=== PATIENT | female | born 1985 | race Caucasian/White ===

== ENCOUNTER 2016-10-29 08:06 | Emergency (ER) | payer OTHER ==
[~2016-10-29] VITALS: Ht 170.2 cm; Wt 68.0 kg
[2016-10-29 08:07] VITALS: BP 155/100; PULSE 108; RESP 20; TEMP 97.7; O2SAT 100
[2016-10-29] MEDS ORDERED: CLIN1CAP6 PO (08:19)
[2016-10-29] MEDS ORDERED: ACYC200C66 PO (08:19)
--- NOTE | 2016-10-29 08:24 | PD ---
HPI Chief Complaint: Oral / Dental Pain or Problem Time Seen by Provider: 08:12 Travel History International Travel<30 days: No Contact w/Intl Traveler<30days: No Traveled to known affect area: No History of Present Illness HPI 31-year-old female presents for evaluation of right lower lip pain. She reports that she developed some cold sores over the past few days. Yesterday she was picking at them and squeezing at them and today she developed increased pain, redness, soft tissue swelling localized to the right lower lip. Pain is a throbbing pain, constant, worse with palpation. She has not been using anything for pain relief. No fevers, chills. No other complaints. PFSH Past Medical History ?: Not LMP: 10/23/16 Social History Alcohol Use: No Tobacco Use: Yes Allergies-Medications (Allergen,Severity, Reaction): Coded Allergies: No Known Allergies (Unverified , 10/29/16) Review of Systems General / Constitutional: No: Fever, Chills HENT: Positive: Other (positive for a vesicle formation right lower lip, pain, redness, swelling) Physical Exam Narrative GENERAL: Well-developed well-nourished female in no acute distress SKIN: Warm and dry. HEAD: Atraumatic. Normocephalic. EYES: Pupils equal and round. No scleral icterus. No injection or drainage. ENT: No nasal bleeding or discharge. Mucous membranes pink and moist. Excoriated vesicle noted to the right lower lip. There is some surrounding induration, erythema the lower lip. There is no fluctuance or drainage. NECK: Trachea midline. No JVD. No lymphadenopathy. Data Data Last Documented VS Vital Signs Date Time Temp Pulse Resp B/P Pulse Ox O2 Delivery O2 Flow Rate FiO2 10/29/16 08:07 97.7 108 20 155/100 100 Room Air MDM Medical Decision Making Medical Screen Exam Complete: Yes Emergency Medical Condition: Yes Medical Record Reviewed: Yes Differential Diagnosis Herpes simplex type I, cellulitis, abscess, erysipelas Narrative Course 31-year-old female who developed vesicular formation consistent with herpes simplex now with pain and soft tissue swelling to the right lower lip after picking at and squeezing at her vesicles yesterday. Examination is consistent with superimposed cellulitic infection. The patient will be discharged with acyclovir and clindamycin. Diagnosis Primary Impression: Herpes labialis Additional Impression: Cellulitis Qualified Code: K12.2 - Cellulitis of mouth Additional Instructions: Medication as prescribed. Avoid squeezing or poking at the area. Follow-up with primary care physician as needed. Return for any emergent medical conditions. Med/Other Pt SpecificInfo: Prescription(s) given Scripts Clindamycin 300 Mg [id number] Mg PO TID 10 Days Ref 0 Prov:Chris Pitts MD 10/29/16 Acyclovir 200 Mg [id number] Mg PO 5 TIMES A DAY 7 Days Ref 0 Prov:Chris Pitts MD 10/29/16 Disposition: 01 DISCHARGE HOME Condition: Stable Lambert Luna Oct 29, 2016 08:23
== END 2016-10-29 08:39 | disposition home or self-care (01) ==
LOC: NEPK 08:06
DX: B00.1 Herpesviral vesicular dermatitis (principal); K12.2 Cellulitis and abscess of mouth; Z72.0 Tobacco use
CPT/HCPCS: 99284

== ENCOUNTER 2016-11-02 18:50 | Inpatient (IN) | payer OTHER ==
[~2016-11-02] VITALS: Ht 170.2 cm; Wt 70.3 kg
[~2016-11-02 18:50] MED LIST: ACYC200C66 PO; CLIN1CAP6 PO
[2016-11-02 18:51] VITALS: BP 145/89; PULSE 123; RESP 20; TEMP 102.3; O2SAT 97
[2016-11-02] MEDS ORDERED: VANCOMYCIN INJ 1,000 MG in SODIUM CHLOR 0.9% 250 ML INJ 250 ML IV ONE (19:15)
[2016-11-02] MEDS ORDERED: SODIUM CHLOR 0.9% 1000 ML INJ 100 ML IV ONE (19:15)
[2016-11-02] MEDS ORDERED: KETOROLAC TROMETHAMINE 30 MG/ML (IVP) VIAL IV PUSH ONE (19:15)
[2016-11-02] MEDS ORDERED: SODIUM CHLOR 0.9% 1000 ML INJ 1,000 ML IV ONE ×2 (19:15)
[2016-11-02] MEDS ORDERED: ACYCLOVIR INJ 350 MG in SODIUM CHLORIDE 0.9% INJ 50 ML IV ONE (19:15)
[2016-11-02] MEDS ORDERED: PIPERACIL-TAZO 3.375 GM PREMIX 50 ML IV ONE (19:15)
--- NOTE | 2016-11-02 19:29 | PD ---
HPI Chief Complaint: Skin Problem Time Seen by Provider: 19:15 Travel History International Travel<30 days: No Contact w/Intl Traveler<30days: No Traveled to known affect area: No History of Present Illness HPI 31-year-old female presents for evaluation of worsening facial infection. Initially this patient was seen for mild herpes labialis to the right lower lip with some superimposed cellulitic infection. This was on October 29. She was prescribed acyclovir and clindamycin which she has been using as prescribed starting on October 29. She reports over the past few days she has had worsening swelling of the whole lower lip as well as the right side of her face. Pain is a throbbing pain, constant, worse with palpation. She has been having subjective fevers and chills at home as well. Denies any cough, congestion, chest pain or shortness of breath, abdominal pain. She has a remote history of IV drug abuse, she has not used IV drugs in 6 months. No other complaints. [facility] Social History Alcohol Use: No Tobacco Use: Yes Allergies-Medications (Allergen,Severity, Reaction): Coded Allergies: No Known Allergies (Unverified , 11/02/16) Reported Meds & Prescriptions Reported Meds & Active Scripts Active Clindamycin (Clindamycin HCl) 300 Mg Cap 300 Mg PO TID 10 Days Acyclovir 200 Mg Cap 200 Mg PO 5 TIMES A DAY 7 Days Review of Systems Except as stated in HPI: all other systems reviewed are Neg Physical Exam Narrative GENERAL: well-nourished female in no acute distress, febrile, tachycardic SKIN: Warm and dry. There is significant induration and erythema of the lower lip, some induration of the right cheek. HEAD: Atraumatic. Normocephalic. EYES: Pupils equal and round. No scleral icterus. No injection or drainage. ENT: No nasal bleeding or discharge. Mucous membranes pink and moist. Skin as noted above. NECK: Trachea midline. No JVD. No lymphadenopathy. Neck supple full range of motion. CARDIOVASCULAR: Regular rate and rhythm. No murmur appreciated. RESPIRATORY: No accessory muscle use. Clear to auscultation. Breath sounds equal bilaterally. GASTROINTESTINAL: Abdomen soft, non-tender, nondistended. MUSCULOSKELETAL: No obvious deformities. No clubbing. No cyanosis. No edema. NEUROLOGICAL: Awake and alert. No obvious cranial nerve deficits. Motor grossly within normal limits. Normal speech. Data Data Last Documented VS Vital Signs Date Time Temp Pulse Resp B/P Pulse Ox O2 Delivery O2 Flow Rate FiO2 11/02/16 20:50 16 11/02/16 20:28 99.4 110 125/74 99 Orders Ed Urine Pregnancytest Poc (11/02/16 19:15) Complete Blood Count With Diff (11/02/16 19:15) Comprehensive Metabolic Panel (11/02/16 19:15) Lactic Acid Sepsis Protocol (11/02/16 19:15) Blood Culture (11/02/16 19:15) Sodium Chlor 0.9% 1000 Ml Inj (Ns 1000 M (11/02/16 19:15) Sodium Chlor 0.9% 1000 Ml Inj (Ns 1000 M (11/02/16 19:15) Sodium Chlor 0.9% 1000 Ml Inj (Ns 1000 M (11/02/16 19:15) Ct Facial Bones W Iv Contrast (11/02/16 ) Vancomycin Inj (Vancomycin Inj) (11/02/16 19:15) Piperacil-Tazo 3.375 Gm Premix (Zosyn 3. (11/02/16 19:15) Acyclovir Inj (Zovirax Inj) (11/02/16 19:15) Ketorolac Inj (Toradol Inj) (11/02/16 19:15) Iohexol 350 Inj (Omnipaque 350 Inj) (11/02/16 21:17) Morphine Inj (Morphine Inj) (11/02/16 22:00) Admit Order (Ed Use Only) (11/02/16 22:01) Labs Laboratory Tests Test 11/02/16 11/02/16 19:40 19:45 White Blood Count 7.3 TH/MM3 Red Blood Count 4.29 MIL/MM3 Hemoglobin 13.4 GM/DL Hematocrit 38.5 % Mean Corpuscular Volume 89.7 FL Mean Corpuscular Hemoglobin 31.3 PG Mean Corpuscular Hemoglobin 34.9 % Concent Red Cell Distribution Width 15.0 % Platelet Count 262 TH/MM3 Mean Platelet Volume 8.0 FL Neutrophils (%) (Auto) 63.4 % Lymphocytes (%) (Auto) 25.2 % Monocytes (%) (Auto) 10.2 % Eosinophils (%) (Auto) 0.8 % Basophils (%) (Auto) 0.4 % Neutrophils # (Auto) 4.6 TH/MM3 Lymphocytes # (Auto) 1.8 TH/MM3 Monocytes # (Auto) 0.7 TH/MM3 Eosinophils # (Auto) 0.1 TH/MM3 Basophils # (Auto) 0.0 TH/MM3 CBC Comment DIFF FINAL Differential Comment Lactic Acid Level 0.8 mmol/L Sodium Level 136 MEQ/L Potassium Level 3.8 MEQ/L Chloride Level 100 MEQ/L Carbon Dioxide Level 25.6 MEQ/L Anion Gap 10 MEQ/L Blood Urea Nitrogen 7 MG/DL Creatinine 0.69 MG/DL Estimat Glomerular Filtration 98 ML/MIN Rate Random Glucose 75 MG/DL Calcium Level 8.2 MG/DL Total Bilirubin 0.8 MG/DL Aspartate Amino Transf 49 U/L (AST/SGOT) Alanine Aminotransferase 41 U/L (ALT/SGPT) Alkaline Phosphatase 83 U/L Total Protein 8.3 GM/DL Albumin 3.3 GM/DL [facility] Medical Decision Making Medical Screen Exam Complete: Yes Emergency Medical Condition: Yes Medical Record Reviewed: Yes Interpretation(s) CBC unremarkable CMP AST 49 otherwise unremarkable lactic acid within normal limits Differential Diagnosis Cellulitis failed outpatient therapy, facial abscess, herpes labialis, sepsis Narrative Course 31-year-old female presents with worsening facial infection, currently on day 5 of acyclovir and clindamycin for treatment of right lower lip herpes labialis with superimposed cytolytic infection. On initial examination she is febrile, tachycardic, significantly worst induration and erythema of the lower lip and right cheek. Plan is for broad-spectrum antibiotics, 30 mL/kg, IV acyclovir, basic lab work, CT of the facial bones with IV contrast. Ultimately she will be admitted for further inpatient treatment. 2300: Signed out at the end of my shift pending CT facial bones. Lambert Luna Nov 02, 2016 19:29
[2016-11-02 20:15] LABS: AUTOMATED NEUTROPHIL # 4.6 TH/MM3 (1.8-7.7); BASOPHIL % 0.4 % (0.0-2.0); EOSINOPHIL # 0.1 TH/MM3 (0-0.4); EOSINOPHIL % 0.8 % (0.0-4.0); HEMATOCRIT 38.5 % (35.0-46.0); HEMO FLAGS DIFF FINAL; LYMPH % 25.2 % (9.0-44.0); LYMPHOCYTE # 1.8 TH/MM3 (1.0-4.8); MEAN CELL VOLUME 89.7 FL (80.0-100.0); MEAN CORPUSCULAR HEMOGLOBIN 31.3 PG (27.0-34.0); MEAN CORPUSCULAR HGB CONC 34.9 % (32.0-36.0); MONO % 10.2 % (0.0-8.0); NEUT % 63.4 % (16.0-70.0); PLATELET COUNT 262 TH/MM3 (150-450); RED BLOOD COUNT 4.29 MIL/MM3 (4.00-5.30); WHITE BLOOD COUNT 7.3 TH/MM3 (4.0-11.0)
[2016-11-02 20:28] VITALS: BP 125/74; PULSE 110; RESP 16; TEMP 99.4; O2SAT 99
[2016-11-02 20:32] LABS: ANION GAP 10 MEQ/L (5-15); AST (GOT) 49 U/L (15-37); BICARBONATE 25.6 MEQ/L (21.0-32.0); BLOOD UREA NITROGEN 7 MG/DL (7-18); CHLORIDE 100 MEQ/L (98-107); GLOMERULAR FILTRATION RATE 98 ML/MIN (>89); POTASSIUM 3.8 MEQ/L (3.5-5.1); SODIUM (NA) 136 MEQ/L (136-145)
[2016-11-02 20:37] LABS: ALKALINE PHOSPHATASE 83 U/L (45-117); ALT (GPT) 41 U/L (10-53); TOTAL BILIRUBIN ADULT 0.8 MG/DL (0.2-1.0)
[2016-11-02] MEDS ORDERED: IOHEXOL 350 MG/ML 10 ML VIAL (for RAD DIAG) IV ONE (21:17)
--- NOTE | 2016-11-02 21:40 | RADRPT ---
EXAM DATE/TIME: 11/02/2016 21:05 [place] COMPARISON: No previous studies available for comparison. INDICATIONS : Cold sore on lower lip with worsening pain and swelling to right side of face. IV CONTRAST: 65 cc Omnipaque 350 (iohexol) IV RADIATION DOSE: 36.81 CTDIvol (mGy) MEDICAL HISTORY : None SURGICAL HISTORY : None. ENCOUNTER: Initial ACUITY: 4 - 6 days PAIN SCALE: 5/10 LOCATION: Right facial TECHNIQUE: Volumetric scanning of the facial bones was performed. Using automated exposure control and adjustme nt of the mA and/or kV according to patient size, radiation dose was kept as low as reasonably achiev able to obtain optimal diagnostic quality images. FINDINGS: There is prominent thickening of the lower lip measuring up to 1.4 cm in thickness. The thickening i s symmetric between left and right side. The there are enlarged submandibular nodes bilaterally, 2 o n each side, the largest is on the right side measuring 1.4 cm. No evidence of jugular adenopathy. The visualized portion of the paranasal sinuses are clear. No destructive lesions or fracture of the mandible, maxilla, zygomatic arch, pterygoid plates or nasa l bone. The bony orbit is intact. Intraorbital contents are normal in configuration. CONCLUSION: 1. Diffuse soft tissue swelling of the lower left with mild heterogeneous enhancement. 2. Bilateral mildly enlarged submandibular lymph nodes. 3. Osseous structures are facial bones are intact. No destruction of the mandible seen. Cal Lubin MD on November 02, 2016 at 21:34 Board Certified Radiologist. This report was verified electronically.
--- NOTE | 2016-11-02 21:54 | PD ---
Data Data Last Documented VS Vital Signs Date Time Temp Pulse Resp B/P Pulse Ox O2 Delivery O2 Flow Rate FiO2 11/02/16 20:50 16 11/02/16 20:28 99.4 110 125/74 99 Orders Ed Urine Pregnancytest Poc (11/02/16 19:15) Complete Blood Count With Diff (11/02/16 19:15) Comprehensive Metabolic Panel (11/02/16 19:15) Lactic Acid Sepsis Protocol (11/02/16 19:15) Blood Culture (11/02/16 19:15) Sodium Chlor 0.9% 1000 Ml Inj (Ns 1000 M (11/02/16 19:15) Sodium Chlor 0.9% 1000 Ml Inj (Ns 1000 M (11/02/16 19:15) Sodium Chlor 0.9% 1000 Ml Inj (Ns 1000 M (11/02/16 19:15) Ct Facial Bones W Iv Contrast (11/02/16 ) Vancomycin Inj (Vancomycin Inj) (11/02/16 19:15) Piperacil-Tazo 3.375 Gm Premix (Zosyn 3. (11/02/16 19:15) Acyclovir Inj (Zovirax Inj) (11/02/16 19:15) Ketorolac Inj (Toradol Inj) (11/02/16 19:15) Iohexol 350 Inj (Omnipaque 350 Inj) (11/02/16 21:17) Morphine Inj (Morphine Inj) (11/02/16 22:00) Labs Laboratory Tests Test 11/02/16 11/02/16 19:40 19:45 White Blood Count 7.3 TH/MM3 Red Blood Count 4.29 MIL/MM3 Hemoglobin 13.4 GM/DL Hematocrit 38.5 % Mean Corpuscular Volume 89.7 FL Mean Corpuscular Hemoglobin 31.3 PG Mean Corpuscular Hemoglobin 34.9 % Concent Red Cell Distribution Width 15.0 % Platelet Count 262 TH/MM3 Mean Platelet Volume 8.0 FL Neutrophils (%) (Auto) 63.4 % Lymphocytes (%) (Auto) 25.2 % Monocytes (%) (Auto) 10.2 % Eosinophils (%) (Auto) 0.8 % Basophils (%) (Auto) 0.4 % Neutrophils # (Auto) 4.6 TH/MM3 Lymphocytes # (Auto) 1.8 TH/MM3 Monocytes # (Auto) 0.7 TH/MM3 Eosinophils # (Auto) 0.1 TH/MM3 Basophils # (Auto) 0.0 TH/MM3 CBC Comment DIFF FINAL Differential Comment Lactic Acid Level 0.8 mmol/L Sodium Level 136 MEQ/L Potassium Level 3.8 MEQ/L Chloride Level 100 MEQ/L Carbon Dioxide Level 25.6 MEQ/L Anion Gap 10 MEQ/L Blood Urea Nitrogen 7 MG/DL Creatinine 0.69 MG/DL Estimat Glomerular Filtration 98 ML/MIN Rate Random Glucose 75 MG/DL Calcium Level 8.2 MG/DL Total Bilirubin 0.8 MG/DL Aspartate Amino Transf 49 U/L (AST/SGOT) Alanine Aminotransferase 41 U/L (ALT/SGPT) Alkaline Phosphatase 83 U/L Total Protein 8.3 GM/DL Albumin 3.3 GM/DL MDM Supervised Visit with EDWARD: Yes Narrative Course I, Dr. Garcia, have reviewed the advance practice practitioner's documentation and am in agreement, met with the patient face to face, made the diagnosis, and the medical decision making was done by me. See his note for further details. Review is a 31-year-old female who is here for worsening facial infection. Patient was initially evaluated by my PA 4 days ago and was diagnosed and treated for mild herpes labialis of the right lower lip with some superimposed cellulitis changes. She was discharged home with a prescription for acyclovir and clindamycin which she has been taking as directed. She reports squeezing and expressing purulence from her lip over the last couple of days. Today the pain and swelling increased significantly. In triage she was noted to have a heart rate of 120s with a temp of 102.3F. Her CBC is unremarkable. CMP is unremarkable. Lactate is 0.8. On exam the patient does have significant lower lip edema with diffuse induration, no fluctuance, no purulence as well as right cheek edema and diffuse induration without fluctuance. She was started on IV vancomycin, IV Zosyn, and IV acyclovir shortly after arriving to the emergency department. She was given a dose of Toradol with moderate improvement in pain, however she is still complaining of pain to her face. Patient was also given 3 L of normal saline IV with improvement in heart rate. CT face with IV contrast: CONCLUSION: 1. Diffuse soft tissue swelling of the lower left with mild heterogeneous enhancement. 2. Bilateral mildly enlarged submandibular lymph nodes. 3. Osseous structures are facial bones are intact. No destruction of the mandible seen. All the patient's lab work is essentially unremarkable, she did present with service criteria and does have significant swelling, induration, and cellulitis to her lower lip and right face. She failed outpatient antibiotic therapy with oral acyclovir and then a mycin. She will therefore be admitted for further antibiotic therapy and reevaluation. Case discussed with hospitalist Dr. Naylor who will admit the patient to her service. Diagnosis Primary Impression: Facial cellulitis Additional Impression: SIRS (systemic inflammatory response syndrome) Admitting Information Admitting Physician Requests: Observation Norris Garcia MD Nov 02, 2016 21:54
[2016-11-02] MEDS ORDERED: MORPHINE SULFATE 4 MG/ML INJ IV PUSH ONE (22:00)
[2016-11-02] MEDS ORDERED: Vancomycin Consult Pharmacy 1 EA OTHER SCH (22:15)
[2016-11-02] MEDS ORDERED: VANCOMYCIN INJ 1,000 MG in SODIUM CHLOR 0.9% 250 ML INJ 250 ML IV SCH (22:15)
[2016-11-02] MEDS ORDERED: SENNOSIDES 8.6 MG TAB PO PRN (23:30)
[2016-11-02] MEDS ORDERED: SODIUM CHLORIDE 0.9% FLUSH 10 ML FLUSH IV FLUSH PRN (23:30)
[2016-11-02] MEDS ORDERED: LACTULOSE SYRUP 20 GM/30 ML CUP PO PRN (23:30)
[2016-11-02] MEDS ORDERED: MAGNESIUM HYDROXIDE SUSP 30 ML CUP PO PRN (23:30)
[2016-11-02] MEDS ORDERED: ONDANSETRON HCL 4 MG/2 ML VIAL IVP PRN (23:30)
[2016-11-02] MEDS ORDERED: ACETAMINOPHEN 325 MG TAB PO PRN (23:30)
[2016-11-02] MEDS ORDERED: BISACODYL 10 MG SUPP RECTAL PRN (23:30)
[2016-11-02] MEDS ORDERED: ZOLPIDEM TARTRATE 5 MG TAB PO PRN (23:30)
[2016-11-03 00:15] VITALS: BP 109/72; PULSE 102; RESP 18; TEMP 98.3; O2SAT 98
[2016-11-03] MEDS: ENOXAPARIN SODIUM 40 MG/0.4 ML SYRINGE SQ SCH ×2 (00:18→22:39)
[2016-11-03] MEDS: SODIUM CHLOR 0.9% 1000 ML INJ 1,000 ML IV SCH ×3 (00:19→19:26)
[2016-11-03] MEDS: methylPREDNISolone SOD SUCC 40 MG/1 ML VIAL IV PUSH SCH ×2 (01:34→05:45)
[2016-11-03] MEDS: PIPERACIL-TAZO 4.5 GM PREMIX 100 ML IV SCH ×4 (01:34→20:33)
[2016-11-03] MEDS: MORPHINE SULFATE 4 MG/ML INJ IV PUSH PRN ×6 (01:36→22:35)
--- NOTE | 2016-11-03 01:47 | HHI.HP ---
HPI Service [facility] Primary Care Physician Unknown Admission Diagnosis facial cellulitis, SIRS Diagnoses: Chief Complaint: worsening facial pain and swelling Travel History International Travel<30 Days: No Contact w/Intl Traveler <30 Da: No Traveled to Known Affected Are: No History of Present Illness Written by Maral Montelongo, acting as scribe for Dr. Naylor on 11/03/16 at 02 :38. This note was transcribed by scribTony HAAS. I, Dr. Heaven Naylor personally performed the history, physical exam, and medical decision making; and confirmed the accuracy of the information in the transcribed note. Authenticated by Dr. Heaven Naylor on 11/03/16 at 02:38. This is a 31-year-old female with a past medical history which includes drug induced seizures, scoliosis hepatitis C and IV drug abuse last to 5-6 months ago. Patient was treated in the ER on October 29 for right lower lip pain. She reports that she developed some cold sores that she picked and squeezed then she developed increased pain, redness, soft tissue swelling localized to the right lower lip. Patient was treated herpes labialis and cellulitis with acyclovir 200mg by mouth five time a day and clindamycin 300mg by mouth TID which she has been using as prescribed starting on October 29 Patient presents today for evaluation of worsening pain and edema. Patient reports over the past few days she has had worsening swelling of the whole lower lip as well as the right side of her face. Pain is a, "raw," throbbing feeling, constant, worse with palpation. She has been having subjective fevers and chills at home as well. Denies any changes in vision, cough, congestion, chest pain, shortness of breath, abdominal pain, nausea, vomiting, diarrhea or constipation. Patient is able to swallow without difficulties. Patient has no drooling. Review of Systems Except as stated in HPI: all other systems reviewed are Neg Past Family Social History Past Medical History drug-induced seizures, scoliosis and hepatitis C Past Surgical History denies prior surgeries Reported Medications Clindamycin (Clindamycin HCl) 300 Mg Cap 300 Mg PO TID 10 Days Acyclovir 200 Mg Cap 200 Mg PO 5 TIMES A DAY 7 Days Allergies: Coded Allergies: No Known Allergies (Unverified , 11/02/16) Active Ordered Medications Current Medications Medications (Trade) Dose Ordered Sig/Alek Route Start Time Stop Time Status Last Admin Piperacillin Sod/ Tazobactam Sod 100 ml @ 200 mls/hr Q6H IV 11/03/16 02:00 11/03/16 01:34 Pharmacy Profile Note 0 ml @ 0 mls/hr UNSCH OTHER 11/02/16 22:15 (Vancomycin Inj/ NS 250 ml Inj) 262.5 ml @ 250 mls/hr Q12H IV 11/03/16 08:00 Miscellaneous Information SPECIFIC LAB TO BE ROBI... ONCE ONCE .XX 11/04/16 07:45 11/04/16 07:46 (NS 1000 ml Inj) 1,000 ml @ 100 mls/hr Q10H IV 11/02/16 23:26 11/03/16 00:19 (NS Flush) 2 ml UNSCH PRN IV FLUSH 11/02/16 23:30 (NS Flush) 2 ml BID IV FLUSH 11/03/16 09:00 (Tylenol) 650 mg Q4H PRN PO 11/02/16 23:30 (Zofran Inj) 4 mg Q6H PRN IVP 11/02/16 23:30 (Ambien) 5 mg HS PRN PO 11/02/16 23:30 (Lovenox Inj) 40 mg Q24H SQ 11/03/16 00:00 11/03/16 00:18 (Mame-Colace) 1 tab BID PO 11/03/16 09:00 (Milk Of Magnesia Liq) 30 ml Q12H PRN PO 11/02/16 23:30 (Senokot) 17.2 mg Q12H PRN PO 11/02/16 23:30 (Dulcolax Supp) 10 mg DAILY PRN RECTAL 11/02/16 23:30 (Lactulose Liq) 30 ml DAILY PRN PO 11/02/16 23:30 (SoluMEDROL INJ) 40 mg Q8HR IV PUSH 11/03/16 01:15 11/03/16 01:34 (Morphine Inj) 2 mg Q4HR PRN IV PUSH 11/03/16 01:15 11/03/16 01:36 Family History denies family medical history specifically DM, CAD or CVA Social History Denies ETOH use Tobacco use 1PPD Illicit drug use marijuana on a daily basis, occasion Xanax and IV opioids in the past. Patient reports no IV drug in the last 5-6 months Physical Exam Vital Signs Vital Signs Date Time Temp Pulse Resp B/P Pulse Ox O2 Delivery O2 Flow Rate FiO2 11/03/16 00:15 98.3 102 18 109/72 98 11/02/16 22:37 16 11/02/16 20:50 16 11/02/16 20:28 99.4 110 16 125/74 99 11/02/16 18:51 102.3 123 20 145/89 97 Physical Exam GENERAL: This is a well-nourished, well-developed patient, appears anxious SKIN: lower lip edematous with erythema below lip and into the right side of face (not affecting the eye). Band aid over lesion lower lip HEAD: Atraumatic. Normocephalic. No temporal or scalp tenderness. EYES: Extraocular motions intact. No scleral icterus. No injection or drainage. ENT: Nose without bleeding, purulent drainage or septal hematoma. Throat without erythema, tonsillar hypertrophy or exudate. Uvula midline. Airway patent. NECK: Trachea midline. No JVD. Supple, nontender, no meningeal signs. bilateral lymphadenopathy present CARDIOVASCULAR: Regular rate and rhythm without murmurs, gallops, or rubs. RESPIRATORY: Clear to auscultation. Breath sounds equal bilaterally. No wheezes , rales, or rhonchi. GASTROINTESTINAL: Abdomen soft, non-tender, nondistended. No guarding. MUSCULOSKELETAL: Extremities without clubbing, cyanosis, or edema. No joint tenderness, effusion, or edema noted. No calf tenderness. Negative Homans sign bilaterally. NEUROLOGICAL: Awake and alert. No focal deficits. Motor and sensory grossly within normal limits. Five out of 5 muscle strength in all muscle groups. Normal speech. Laboratory Laboratory Tests Test 11/02/16 11/02/16 19:40 19:45 White Blood Count 7.3 Red Blood Count 4.29 Hemoglobin 13.4 Hematocrit 38.5 Mean Corpuscular Volume 89.7 Mean Corpuscular Hemoglobin 31.3 Mean Corpuscular Hemoglobin 34.9 Concent Red Cell Distribution Width 15.0 Platelet Count 262 Mean Platelet Volume 8.0 Neutrophils (%) (Auto) 63.4 Lymphocytes (%) (Auto) 25.2 Monocytes (%) (Auto) 10.2 Eosinophils (%) (Auto) 0.8 Basophils (%) (Auto) 0.4 Neutrophils # (Auto) 4.6 Lymphocytes # (Auto) 1.8 Monocytes # (Auto) 0.7 Eosinophils # (Auto) 0.1 Basophils # (Auto) 0.0 CBC Comment DIFF FINAL Differential Comment Lactic Acid Level 0.8 Sodium Level 136 Potassium Level 3.8 Chloride Level 100 Carbon Dioxide Level 25.6 Anion Gap 10 Blood Urea Nitrogen 7 Creatinine 0.69 Estimat Glomerular Filtration 98 Rate Random Glucose 75 Calcium Level 8.2 Total Bilirubin 0.8 Aspartate Amino Transf 49 (AST/SGOT) Alanine Aminotransferase 41 (ALT/SGPT) Alkaline Phosphatase 83 Total Protein 8.3 Albumin 3.3 Date/Time Procedure Status Source Growth 11/02/16 22:45 Gram Stain Received Wound Lip Pending 11/02/16 22:45 Wound Culture Received Wound Lip Pending 11/02/16 19:45 Aerobic Blood Culture Received Blood Peripheral Pending 11/02/16 19:45 Anaerobic Blood Culture Received Blood Peripheral Pending Result Diagram: 11/02/16 19411/02/16 194 Imaging Last Impressions Maxillofacial CT 11/02/16 0000 Signed Impressions: Service Date/Time: Wednesday, November 02, 2016 21:05 - CONCLUSION: 1. Diffuse soft tissue swelling of the lower left with mild heterogeneous enhancement. 2. Bilateral mildly enlarged submandibular lymph nodes. 3. Osseous structures are facial bones are intact. No destruction of the mandible seen. Cal Lubin MD Septic Shock Reassessment Heart: Regular rate and rhythm Lungs: Clear Skin: Warm, Dry, Moist Peripheral Pulses: Bounding Right Radial Bounding Left Radial Bounding Right Dorsalis Pedis Bounding Left Dorsalis Pedis Capillary Refill: Brisk Assessment and Plan Problem List: (1) Herpes labialis ICD Code: B00.1 Status: Acute (2) Cellulitis ICD Code: L03.90 Status: Acute (3) Facial cellulitis ICD Code: L03.211 Status: Acute (4) Sepsis ICD Code: A41.9 Status: Acute Assessment and Plan This is a 31-year-old female with a past medical history which includes drug induced seizures, scoliosis hepatitis C and IV drug abuse last to 5-6 months ago. presents to ER after failed outpatient treatment for herpes labialis and facial cellulitis Sepsis by criteria on admission (temperature 102.3, heart rate 123 suspected source facial cellulitis) Herpes with superimposed cellulitis of the right lower lip and face Failed outpatient treatment patient with facial edema without proper treatment is at risk for worsening symptoms and airway compromise received acyclovir 350mg IV in ER start acyclovir 200mg five times a day Start zosyn and vancomycin IV- with pharmacy to dose Maxillofacial CT reviewed by me and reveals 1. Diffuse soft tissue swelling of the lower left with mild heterogeneous enhancement. 2. Bilateral mildly enlarged submandibular lymph nodes. 3. Osseous structures are facial bones are intact. No destruction of the mandible seen. \\ received Toradol 30 mgIV in ER Solu medrol 40 mg IV Q6H IV Morphine as needed for pain Tobacco abuse- patient counselled encouraged to abstain DVT prophlaysis with Lovenox Discussed with ER provider, nursing patient and patient's significant other Physician Certification 2 Midnight Certification Type: Admission for Inpatient Services Order for Inpatient Services The services are ordered in accordance with Medicare regulations or non- Medicare payer requirements, as applicable. In the case of services not specified as inpatient-only, they are appropriately provided as inpatient services in accordance with the 2-midnight benchmark. Estimated LOS (days): 4 days is the estimated time the patient will need to remain in the hospital, assuming treatment plan goals are met and no additional complications. Post-Hospital Plan: Home Maral Montelongo Nov 03, 2016 01:47 Heaven Naylor MD Nov 03, 2016 04:12
[2016-11-03 04:00] VITALS: BP 109/62; PULSE 90; RESP 17; TEMP 98.5; O2SAT 96
[2016-11-03] MEDS: ACYCLOVIR 200 MG CAP PO SCH ×5 (05:45→22:33)
[2016-11-03] MEDS: DOCUSATE SODIUM 50 MG/SENNA 8.6 MG TAB PO SCH ×2 (07:56→20:34)
[2016-11-03] MEDS: VANCOMYCIN INJ 1,250 MG in SODIUM CHLOR 0.9% 250 ML INJ 250 ML IV SCH ×2 (07:56→20:33)
[2016-11-03] MEDS: SODIUM CHLORIDE 0.9% FLUSH 10 ML FLUSH IV FLUSH SCH ×2 (07:57→20:35)
[2016-11-03 08:16] LABS: BASOPHIL % 0.1 % (0.0-2.0); EOSINOPHIL % 0.1 % (0.0-4.0); HEMATOCRIT 31.1 % (35.0-46.0); HEMO FLAGS DIFF FINAL; LYMPH % 12.5 % (9.0-44.0); LYMPHOCYTE # 0.7 TH/MM3 (1.0-4.8); MEAN CELL VOLUME 89.1 FL (80.0-100.0); MEAN CORPUSCULAR HEMOGLOBIN 30.9 PG (27.0-34.0); MEAN CORPUSCULAR HGB CONC 34.7 % (32.0-36.0); MONO % 2.6 % (0.0-8.0); NEUT % 84.7 % (16.0-70.0); PLATELET COUNT 220 TH/MM3 (150-450); RED BLOOD COUNT 3.49 MIL/MM3 (4.00-5.30); WHITE BLOOD COUNT 5.8 TH/MM3 (4.0-11.0)
[2016-11-03 08:51] LABS: BICARBONATE 25.6 MEQ/L (21.0-32.0); POTASSIUM 4.1 MEQ/L (3.5-5.1)
[2016-11-03 09:00] VITALS: BP 103/66; PULSE 74; RESP 20; TEMP 97.6; O2SAT 98
[2016-11-03 12:00] VITALS: BP 108/58; PULSE 75; RESP 18; TEMP 98.7; O2SAT 98
--- NOTE | 2016-11-03 14:14 | HHI.PR ---
Subjective Remarks Follow-up herpes with superimposed cellulitis 11/03/16-patient seen and examined; currently afebrile and stable Objective Vitals Vital Signs Date Time Temp Pulse Resp B/P Pulse Ox O2 Delivery O2 Flow Rate FiO2 11/03/16 12:00 98.7 75 18 108/58 98 11/03/16 09:00 97.6 74 20 103/66 98 11/03/16 04:00 98.5 90 17 109/62 96 11/03/16 00:15 98.3 102 18 109/72 98 11/02/16 22:37 16 11/02/16 20:50 16 11/02/16 20:28 99.4 110 16 125/74 99 11/02/16 18:51 102.3 123 20 145/89 97 I/O 11/02/16 11/02/16 11/02/16 11/03/16 11/03/16 11/03/16 07:00 15:00 23:00 07:00 15:00 23:00 Intake Total 720 ml Balance 720 ml Intake Oral 720 ml # Voids 4 Result Diagram: 11/03/16 0744 11/03/16 0744 Imaging Last Impressions Maxillofacial CT 11/02/16 0000 Signed Impressions: Service Date/Time: Wednesday, November 02, 2016 21:05 - CONCLUSION: 1. Diffuse soft tissue swelling of the lower left with mild heterogeneous enhancement. 2. Bilateral mildly enlarged submandibular lymph nodes. 3. Osseous structures are facial bones are intact. No destruction of the mandible seen. Cal Lubin MD Objective Remarks GENERAL: NAD SKIN: Warm and dry. Swelling and erythema lower lip HEAD: Normocephalic. EYES: No scleral icterus. No injection or drainage. NECK: Supple, trachea midline. No JVD or lymphadenopathy. CARDIOVASCULAR: Regular rate and rhythm without murmurs, gallops, or rubs. RESPIRATORY: Breath sounds equal bilaterally. No accessory muscle use. GASTROINTESTINAL: Abdomen soft, non-tender, nondistended. MUSCULOSKELETAL: No cyanosis, or edema. BACK: Nontender without obvious deformity. No CVA tenderness. A/P Problem List: (1) Herpes labialis ICD Code: B00.1 Status: Acute (2) Cellulitis ICD Code: L03.90 Status: Acute (3) Facial cellulitis ICD Code: L03.211 Status: Acute (4) Sepsis ICD Code: A41.9 Status: Acute Assessment and Plan 31-year-old female with Sepsis by criteria on admission (temperature 102.3, heart rate 123 suspected source facial cellulitis) Herpes with superimposed cellulitis of the right lower lip and face Failed outpatient treatment Continue acyclovir 200mg five times a day, Zosyn and IV vancomycin pending culture report Parenteral pain management accordingly Check HIV and Consult ID Tobacco abuse- patient counselled encouraged to abstain. Start nicotine patch DVT prophylaxis with Glenn Calvillo MD Nov 03, 2016 14:14
[2016-11-03] MEDS: NICOTINE 21 MG/24 HR PATCH T-DERMAL SCH (14:37)
[2016-11-03 16:00] VITALS: BP 106/83; PULSE 89; RESP 18; TEMP 98.4; O2SAT 98
[2016-11-03 21:00] VITALS: BP 117/77; PULSE 82; RESP 18; TEMP 97.7; O2SAT 99
[2016-11-04 00:40] VITALS: BP 119/78; PULSE 75; RESP 18; TEMP 97.5; O2SAT 98
[2016-11-04] MEDS: PIPERACIL-TAZO 4.5 GM PREMIX 100 ML IV SCH ×2 (01:27→08:23)
[2016-11-04 04:52] VITALS: BP 114/74; PULSE 72; RESP 18; TEMP 97.4; O2SAT 100
[2016-11-04] MEDS: SODIUM CHLOR 0.9% 1000 ML INJ 1,000 ML IV SCH ×2 (05:26→21:03)
[2016-11-04] MEDS: ACYCLOVIR 200 MG CAP PO SCH ×5 (05:37→21:01)
[2016-11-04] MEDS ORDERED: PHARMACY ORDERED LAB ONE (07:45)
[2016-11-04 08:00] VITALS: BP 114/78; PULSE 74; RESP 20; TEMP 96.8; O2SAT 98
[2016-11-04] MEDS: REMOVE OLD PATCH T-DERMAL SCH (08:21)
[2016-11-04] MEDS: NICOTINE 21 MG/24 HR PATCH T-DERMAL SCH (08:21)
[2016-11-04] MEDS: SODIUM CHLORIDE 0.9% FLUSH 10 ML FLUSH IV FLUSH SCH ×2 (08:22→21:00)
[2016-11-04] MEDS: DOCUSATE SODIUM 50 MG/SENNA 8.6 MG TAB PO SCH ×2 (08:22→21:01)
[2016-11-04] MEDS: VANCOMYCIN INJ 1,250 MG in SODIUM CHLOR 0.9% 250 ML INJ 250 ML IV SCH (10:04)
[2016-11-04] MEDS: MORPHINE SULFATE 4 MG/ML INJ IV PUSH PRN ×3 (10:19→21:02)
[2016-11-04 12:00] VITALS: BP 113/73; PULSE 71; RESP 20; TEMP 97.8; O2SAT 96
--- NOTE | 2016-11-04 12:47 | HHI.PR ---
Subjective Remarks Follow-up herpes with superimposed cellulitis 11/03/16-patient seen and examined; currently afebrile and stable 11/04/16-patient seen and examined, no acute event overnight, slightly more swollen lip and wound culture positive for MRSA. Boyfriend by the bedside Objective Vitals Vital Signs Date Time Temp Pulse Resp B/P Pulse Ox O2 Delivery O2 Flow Rate FiO2 11/04/16 08:00 96.8 74 20 114/78 98 11/04/16 04:52 97.4 72 18 114/74 100 11/04/16 00:40 97.5 75 18 119/78 98 11/03/16 22:40 18 11/03/16 21:00 97.7 82 18 117/77 99 11/03/16 16:00 98.4 89 18 106/83 98 I/O 11/03/16 11/03/16 11/03/16 11/04/16 11/04/16 11/04/16 07:00 15:00 23:00 07:00 15:00 23:00 Intake Total 720 ml 1050 ml 1080 ml 1114 ml Balance 720 ml 1050 ml 1080 ml 1114 ml Intake Oral 720 ml 1080 ml IV Total 1050 ml 1114 ml # Voids 4 5 Result Diagram: 11/03/1644 11/03/16743 Objective Remarks GENERAL: NAD SKIN: Warm and dry. Swelling and erythema lower lip HEAD: Normocephalic. EYES: No scleral icterus. No injection or drainage. NECK: Supple, trachea midline. + lymphadenopathy. CARDIOVASCULAR: Regular rate and rhythm without murmurs, gallops, or rubs. RESPIRATORY: Breath sounds equal bilaterally. No accessory muscle use. GASTROINTESTINAL: Abdomen soft, non-tender, nondistended. MUSCULOSKELETAL: No cyanosis, or edema. BACK: Nontender without obvious deformity. No CVA tenderness. A/P Problem List: (1) Herpes labialis ICD Code: B00.1 Status: Acute (2) Cellulitis ICD Code: L03.90 Status: Acute (3) Facial cellulitis ICD Code: L03.211 Status: Acute (4) Sepsis ICD Code: A41.9 Status: Acute Assessment and Plan 31-year-old female with Sepsis by criteria on admission (temperature 102.3, heart rate 123 suspected source facial cellulitis) Herpes with superimposed cellulitis of the right lower lip and face Failed outpatient treatment Continue acyclovir 200mg five times a day, IV vancomycin however discontinue Zosyn as wound culture positive for MRSA Parenteral pain management accordingly HIV pending and Consult ID Tobacco abuse- patient counselled encouraged to abstain. Continue nicotine patch DVT prophylaxis with [employer] Glenn Turk MD Nov 04, 2016 12:47
--- NOTE | 2016-11-04 15:09 | PD.ID.CON ---
History of Present Illness Service ID Consult Requested By Dr Turk Reason for Consult facial cellulitis Primary Care Physician Unknown Diagnoses: History of Present Illness 31 yo F with IVDA presented with worsening swelling pain of lower lip for 1 wk which started after herpes labialis recurrent outbreak She was on clu=indamycin prior to admission and it was not helping her On admission she had a fever of 102 She was started on zosyn, vancomycin and swelling, pain improved she is co significan t swelling of her lip Her fevers subsided and lip lesion clx is growing MRSA Her HIV EISA is positive, confirmatory tests are P She admits to sharing needles, last time 6 mos ago SHe had negative HIV test 2 yrs ago Review of Systems Except as stated in HPI: all other systems reviewed are Neg Past Family Social History Allergies: Coded Allergies: No Known Allergies (Unverified , 11/02/16) Past Medical History HCV Past Surgical History denies Active Ordered Medications Medications where reviewed in EMR Antibiotics Include: zosyn, vancomycin Social History + IVDA, + sharing needles, last time 6 mos ago + tobacco 1ppd denies ETOH Physical Exam Vital Signs Vital Signs Date Time Temp Pulse Resp B/P Pulse Ox O2 Delivery O2 Flow Rate FiO2 11/04/16 12:00 97.8 71 20 113/73 96 11/04/16 08:00 96.8 74 20 114/78 98 11/04/16 04:52 97.4 72 18 114/74 100 11/04/16 00:40 97.5 75 18 119/78 98 11/03/16 22:40 18 11/03/16 21:00 97.7 82 18 117/77 99 11/03/16 16:00 98.4 89 18 106/83 98 Physical Exam CONSTITUTIONAL/GENERAL: This is an adequately nourished patient, in no apparent distress. TUBES/LINES/DRAINS: SKIN: No jaundice, rashes, or lesions. Ecchymoses on upper extremities. No wounds seen anteriorly. Skin temperature appropriate. Not diaphoretic. HEAD: Atraumatic. Normocephalic. EYES: Pupils equal and round and reactive. Extraocular motions intact. No scleral icterus. No injection or drainage. Fundi not examined. ENT: Hearing grossly normal. Nose without bleeding or purulent drainage. Oral mucosae without visible erythema, exudates, masses, or lesions. No thrush Lower lip on the left healing crusted lesions Lip is quite swollen , indurated, no fluctuane minimal erythema no facila edema no facial erythema NECK: Trachea midline. Supple, nontender. CARDIOVASCULAR: Regular rate and rhythm without murmurs, gallops, or rubs. No JVD. Peripheral pulses symmetric. RESPIRATORY/CHEST: Symmetric, unlabored respirations. Clear to auscultation. Breath sounds equal bilaterally. No wheezes, rales, or rhonchi. GASTROINTESTINAL: Abdomen soft, non-tender, nondistended. No hepato-splenomegaly , or palpable masses. No guarding. Bowel sounds present. GENITOURINARY: Without palpable bladder distension. Pearson catheter in place. MUSCULOSKELETAL: Extremities without clubbing, cyanosis, or edema. No joint tenderness or effusion noted. No calf tenderness. No mottling or clubbing. LYMPHATICS: No palpable cervical axilla or supraclavicular adenopathy. NEUROLOGICAL: Awake and alert. Motor and sensory grossly within normal limits. Follows commands. Cognitively sharp. Moves all extremities. PSYCHIATRIC: No obvious anxiety/depression. no apparent hallucinations or other psychotic thought process. Laboratory Laboratory Tests Test 11/04/16 11/04/16 06:29 09:27 HIV (1&2) Antibody REFLEX Vancomycin Level Trough 10.6 Date/Time Procedure Status Source Growth 11/02/16 22:45 Gram Stain - Final Resulted Wound Lip 11/02/16 22:45 Wound Culture - Preliminary Resulted S. Aureus Mrsa 11/02/16 19:45 Aerobic Blood Culture - Preliminary Resulted Blood Peripheral NO GROWTH IN 2 DAYS 11/02/16 19:45 Anaerobic Blood Culture - Preliminary Resulted Blood Peripheral NO GROWTH IN 2 DAYS 11/02/16 19:15 Aerobic Blood Culture Received Blood Peripheral Pending 11/02/16 19:15 Anaerobic Blood Culture Received Blood Peripheral Pending Result Diagram: 11/03/16 0744 11/03/16 0744 Imaging Last Impressions Maxillofacial CT 11/02/16 0000 Signed Impressions: Service Date/Time: Wednesday, November 02, 2016 21:05 - CONCLUSION: 1. Diffuse soft tissue swelling of the lower left with mild heterogeneous enhancement. 2. Bilateral mildly enlarged submandibular lymph nodes. 3. Osseous structures are facial bones are intact. No destruction of the mandible seen. Cal Lubin MD Assessment and Plan Assessment and Plan Lower lip MRSA infx, superinfected herpetic lesion - failed clinda, probably clinda R Probable new HIV case, awaiting confirmation; PEPPER + in high risk pt (IVDA with sharing needles practiceis) - her prelim HIV result was discussed with the pt and by pt's request her BF was invited back and her labs resuts were discussed in front of him - both pt and her BF were counseled regarding the meaning of prelim result and need of safe sex practices - pt was adviced that confirmatory results need to recieved and be positive before any further treatment recomendations are made;in case of d/c prior to confirmation she will need to follow her final result HCV - CD4 -dc zosyn - cont vanco - anticipate dc on oral abx pending sensitivity profile Discussed Condition With pt and her BF RN case mngr Marita Montana MD Nov 04, 2016 15:09
[2016-11-04 16:53] VITALS: BP 112/81; PULSE 79; RESP 20; TEMP 97.6; O2SAT 97
[2016-11-04 20:25] VITALS: BP 116/78; PULSE 80; RESP 16; TEMP 97.4; O2SAT 99
[2016-11-04] MEDS: VANCOMYCIN INJ 1,500 MG in SODIUM CHLORID 0.9% 500 ML INJ 500 ML IV SCH (22:07)
[2016-11-04] MEDS: ENOXAPARIN SODIUM 40 MG/0.4 ML SYRINGE SQ SCH (22:07)
[2016-11-05 00:30] VITALS: BP 110/71; PULSE 78; RESP 18; TEMP 96.5; O2SAT 96
[2016-11-05 04:00] VITALS: BP 115/69; PULSE 70; RESP 16; TEMP 96.4; O2SAT 96
[2016-11-05] MEDS: ACYCLOVIR 200 MG CAP PO SCH ×5 (05:51→19:52)
[2016-11-05] MEDS: DOCUSATE SODIUM 50 MG/SENNA 8.6 MG TAB PO SCH ×2 (07:49→19:45)
[2016-11-05] MEDS: VANCOMYCIN INJ 1,500 MG in SODIUM CHLORID 0.9% 500 ML INJ 500 ML IV SCH ×2 (07:49→19:45)
[2016-11-05] MEDS: REMOVE OLD PATCH T-DERMAL SCH (07:50)
[2016-11-05] MEDS: SODIUM CHLORIDE 0.9% FLUSH 10 ML FLUSH IV FLUSH SCH ×2 (07:51→19:48)
[2016-11-05] MEDS: NICOTINE 21 MG/24 HR PATCH T-DERMAL SCH (07:51)
[2016-11-05 08:01] VITALS: BP 112/79; PULSE 73; RESP 16; TEMP 97.1; O2SAT 96
[2016-11-05] MEDS: MORPHINE SULFATE 4 MG/ML INJ IV PUSH PRN ×4 (08:02→23:57)
--- NOTE | 2016-11-05 11:41 | HHI.PR ---
Subjective Remarks Follow-up for lip infection Patient stated that swelling has improved. She is very anxious to go home. Patient stated that sometimes she has pain at the site of the lesions and is asking for something to help numb it. Otherwise no other complaints. Her boyfriend is at the bedside. Objective Vitals Vital Signs Date Time Temp Pulse Resp B/P Pulse Ox O2 Delivery O2 Flow Rate FiO2 11/05/16 08:01 97.1 73 16 112/79 96 11/05/16 04:00 96.4 70 16 115/69 96 11/05/16 00:30 96.5 78 18 110/71 96 11/04/16 22:07 18 11/04/16 20:25 97.4 80 16 116/78 99 11/04/16 16:53 97.6 79 20 112/81 97 11/04/16 12:00 97.8 71 20 113/73 96 I/O 11/04/16 11/04/16 11/04/16 11/05/16 11/05/16 11/05/16 07:00 15:00 23:00 07:00 15:00 23:00 Intake Total 1114 ml 480 ml 500 ml 450 ml Balance 1114 ml 480 ml 500 ml 450 ml Intake Oral 480 ml 500 ml 450 ml IV Total 1114 ml # Voids 2 3 3 # Bowel Movements 1 1 1 Result Diagram: 11/03/1674311/03/16743 Objective Remarks GENERAL: NAD SKIN: Warm and dry. Swelling, ulcerating lesions and erythema lower lip NECK: Supple, trachea midline. + lymphadenopathy. CARDIOVASCULAR: Regular rate and rhythm without murmurs, gallops, or rubs. RESPIRATORY: Breath sounds equal bilaterally. No accessory muscle use. GASTROINTESTINAL: Abdomen soft, non-tender, nondistended. Medications and IVs Current Medications Sodium Chloride 1,000 ml @ 1,000 mls/hr Q1H ONCE IV Last administered on 20:08; Start 11/02/16 at 19:15; Stop 11/02/16 at 20:15; Status DC Sodium Chloride 1,000 ml @ 1,000 mls/hr Q1H ONCE IV Last administered on 20:09; Start 11/02/16 at 19:15; Stop 11/02/16 at 20:15; Status DC Sodium Chloride 100 ml @ 1,000 mls/hr Q6M ONCE IV Last administered on 21:43; Start 11/02/16 at 19:15; Stop 11/02/16 at 19:20; Status DC Vancomycin HCl 1000 mg/Sodium Chloride 250 ml @ 250 mls/hr ONCE ONCE IV Last administered on 11/02/16 21:43; Start 11/02/16 at 19:15; Stop 11/02/16 at 20:15 ; Status DC Piperacillin Sod/ Tazobactam Sod 50 ml @ 100 mls/hr ONCE ONCE IV Last administered on 11/02/16 20:09; Start 11/02/16 at 19:15; Stop 11/02/16 at 19:44 ; Status DC Acyclovir Sodium/ Sodium Chloride (Zovirax Inj/NS Inj) 50 ml @ 50 mls/hr ONCE ONCE IV Last administered on 11/02/16 20:36; Start 11/02/16 at 19:15; Stop 04/10 at 20:15; Status DC Ketorolac Tromethamine (Toradol Inj) 30 mg ONCE ONCE IV PUSH Last administered on 11/02/16 20:09; Start 11/02/16 at 19:15; Stop 11/02/16 at 19:19 ; Status DC Iohexol (Omnipaque 350 Inj) 65 ml STK-MED ONCE IV Last administered on 21:17; Start 11/02/16 at 21:17; Stop 11/02/16 at 21:18; Status DC Morphine Sulfate 4 mg 4 mg ONCE ONCE IV PUSH Last administered on 11/02/16 22 :13; Start 11/02/16 at 22:00; Stop 11/02/16 at 22:01; Status DC Piperacillin Sod/ Tazobactam Sod 100 ml @ 200 mls/hr Q6H IV Last administered on 11/04/16 08:23; Start 11/03/16 at 02:00; Stop 11/04/16 at 10:21; Status DC Pharmacy Profile Note 0 ml @ 0 mls/hr UNSCH OTHER ; Start 11/02/16 at 22:15 Vancomycin HCl 1000 mg/Sodium Chloride 250 ml @ 250 mls/hr Q12H IV ; Start 04/10 at 22:15; Status UNV Vancomycin HCl/ Sodium Chloride (Vancomycin Inj/ NS 250 ml Inj) 262.5 ml @ 250 mls/hr Q12H IV Last administered on 11/04/16 10:04; Start 11/03/16 at 08:00; Stop 11/04/16 at 10:42; Status DC Miscellaneous Information SPECIFIC LAB TO BE ... ONCE ONCE .XX Last administered on 11/04/16 09:30; Start 11/04/16 at 07:45; Stop 11/04/16 at 07:46 ; Status DC Sodium Chloride (NS 1000 ml Inj) 1,000 ml @ 30 mls/hr Q24H IV Last administered on 11/04/16 21:03; Start 11/02/16 at 23:26 Sodium Chloride (NS Flush) 2 ml UNSCH PRN IV FLUSH FLUSH AFTER USING IV ACCESS Last administered on 11/04/16 21:02; Start 11/02/16 at 23:30 Sodium Chloride (NS Flush) 2 ml BID IV FLUSH Last administered on 11/04/16 08: 22; Start 11/03/16 at 09:00 Acetaminophen (Tylenol) 650 mg Q4H PRN PO TEMP > 100.4; pain 1 -2; Start at 23:30 Ondansetron HCl (Zofran Inj) 4 mg Q6H PRN IVP NAUSEA OR VOMITING; Start at 23:30 Zolpidem Tartrate (Ambien) 5 mg HS PRN PO INSOMNIA Last administered on 22:33; Start 11/02/16 at 23:30 Enoxaparin Sodium (Lovenox Inj) 40 mg Q24H SQ Last administered on 11/04/16 22 :07; Start 11/03/16 at 00:00 Senna/Docusate Sodium (Mame-Colace) 1 tab BID PO Last administered on 21:01; Start 11/03/16 at 09:00 Magnesium Hydroxide (Milk Of Magnesia Liq) 30 ml Q12H PRN PO MILD - MODERATE CONSTIPATION; Start 11/02/16 at 23:30 Sennosides (Senokot) 17.2 mg Q12H PRN PO MODERATE - SEVERE CONSTIPATION; Start 11/02/16 at 23:30 Bisacodyl (Dulcolax Supp) 10 mg DAILY PRN RECTAL SEVERE CONSITIPATION; Start at 23:30 Lactulose (Lactulose Liq) 30 ml DAILY PRN PO SEVERE CONSITIPATION; Start at 23:30 Methylprednisolone Sodium Succinate (SoluMEDROL INJ) 40 mg Q8HR IV PUSH Last administered on 11/03/16 05:45; Start 11/03/16 at 01:15; Stop 11/03/16 at 14:11 ; Status DC Acyclovir (Zovirax) 200 mg 5 TIMES A DAY PO Last administered on 11/05/16 10: 33; Start 11/03/16 at 06:00 Morphine Sulfate (Morphine Inj) 2 mg Q4HR PRN IV PUSH pain 2-10 Last administered on 11/05/16 08:02; Start 11/03/16 at 01:15 Nicotine (Habitrol 21 Mg Patch.24 Hr) 1 patch DAILY T-DERMAL Last administered on 11/05/16 07:51; Start 11/03/16 at 14:15 Miscellaneous Information 1 1 DAILY T-DERMAL Last administered on 11/05/16 07: 50; Start 11/04/16 at 09:00 Vancomycin HCl/ Sodium Chloride (Vancomycin Inj/ NS 500 ml Inj) 515 ml @ 250 mls/hr Q12H IV Last administered on 11/05/16 07:49; Start 11/04/16 at 20:00 Miscellaneous Information SPECIFIC LAB TO BE DRAWN:VANCOMYCIN TROUGH DATE TO... ONCE ONCE .XX ; Start 11/06/16 at 07:45; Stop 11/06/16 at 07:46 A/P Problem List: (1) Herpes labialis ICD Code: B00.1 Status: Acute (2) Cellulitis ICD Code: L03.90 Status: Acute (3) Facial cellulitis ICD Code: L03.211 Status: Acute (4) Sepsis ICD Code: A41.9 Status: Acute Assessment and Plan 31-year-old female with Sepsis by criteria on admission (temperature 102.3, heart rate 123 suspected source facial cellulitis) Herpes with superimposed cellulitis of the right lower lip and face Failed outpatient treatment Continue acyclovir 200mg five times a day, IV vancomycin however discontinue Zosyn as wound culture positive for MRSA Parenteral pain management accordingly HIV confirmatory pending and pending final sensitivity to transition patient to oral medication. Will try Magic mouthwash to help with oral pain. Tobacco abuse- patient counselled encouraged to abstain. Continue nicotine patch DVT prophylaxis with Lovenox Discharge Planning Pending final sensitivity in order to transition patient to oral medication. Di Aguirre MD Nov 05, 2016 11:41
[2016-11-05 12:00] VITALS: BP 121/80; PULSE 82; RESP 18; TEMP 97.4; O2SAT 98
[2016-11-05 15:18] LABS: HIV 1 AB DIFFERENTIATION Positive (Negative); HIV 1/2 AG AND AB SCREEN Reactive (Negative); HIV 2 AB DIFFERENTIATION Negative (Negative)
[2016-11-05] MEDS: NYSTAT/DIPHENHY/LIDO MOUTHWASH (Adult) 120ML SWISH-SWAL SCH ×3 (15:46→19:49)
[2016-11-05 16:00] VITALS: BP 122/78; PULSE 74; RESP 18; TEMP 96.7; O2SAT 98
[2016-11-05] MEDS: SODIUM CHLOR 0.9% 1000 ML INJ 1,000 ML IV SCH (19:54)
[2016-11-05 20:00] VITALS: BP 114/76; PULSE 74; RESP 18; TEMP 97; O2SAT 98
[2016-11-05] MEDS: ENOXAPARIN SODIUM 40 MG/0.4 ML SYRINGE SQ SCH (23:53)
[2016-11-06] VITALS: BP 109/73; PULSE 71; RESP 18; TEMP 98.2; O2SAT 96
[2016-11-06 04:00] VITALS: BP_SYST 105; BP_SYST 95; BP_DIAS 65; BP_DIAS 83; PULSE 42; PULSE 83; RESP 16; RESP 18; TEMP 96; TEMP 97.2; O2SAT 100
[2016-11-06] MEDS: ACYCLOVIR 200 MG CAP PO SCH ×3 (05:30→14:24)
[2016-11-06] MEDS ORDERED: PHARMACY ORDERED LAB ONE (07:45)
[2016-11-06] MEDS: MORPHINE SULFATE 4 MG/ML INJ IV PUSH PRN (08:37)
[2016-11-06] MEDS: NICOTINE 21 MG/24 HR PATCH T-DERMAL SCH (08:38)
[2016-11-06] MEDS: DOCUSATE SODIUM 50 MG/SENNA 8.6 MG TAB PO SCH (08:38)
[2016-11-06] MEDS: SODIUM CHLORIDE 0.9% FLUSH 10 ML FLUSH IV FLUSH SCH (08:38)
[2016-11-06] MEDS: NYSTAT/DIPHENHY/LIDO MOUTHWASH (Adult) 120ML SWISH-SWAL SCH ×2 (08:39→14:24)
--- NOTE | 2016-11-06 08:42 | HHI.PR ---
Addendum to Inpatient Note Additional Information HIV confirmation is positive Pt needs to be refereed to HIV provider awaiting sensitivity report for MRSA in lip wound to give final abx rec's Marita Montana MD Nov 06, 2016 08:42
[2016-11-06 09:00] VITALS: BP 119/71; PULSE 68; RESP 15; TEMP 97.1; O2SAT 97
[2016-11-06] MEDS: REMOVE OLD PATCH T-DERMAL SCH (09:00)
[2016-11-06] MEDS: VANCOMYCIN INJ 1,500 MG in SODIUM CHLORID 0.9% 500 ML INJ 500 ML IV SCH (09:01)
--- NOTE | 2016-11-06 10:43 | HHI.PR ---
Subjective Remarks Follow-up for oral infection and HIV results Patient has no complaints. She stated that the Magic wash helped with the oral pain. I asked patient if she is aware her confirmatory HIV results and she stated no. Objective Vitals Vital Signs Date Time Temp Pulse Resp B/P Pulse Ox O2 Delivery O2 Flow Rate FiO2 11/06/16 09:00 97.1 68 15 119/71 97 11/06/16 04:00 97.2 83 18 105/83 100 11/06/16 00:16 16 11/06/16 00:00 98.2 71 18 109/73 96 11/05/16 20:00 97.0 74 18 114/76 98 11/05/16 16:00 96.7 74 18 122/78 98 11/05/16 12:00 97.4 82 18 121/80 98 I/O 11/05/16 11/05/16 11/05/16 11/06/16 11/06/16 11/06/16 07:00 15:00 23:00 07:00 15:00 23:00 Intake Total 450 ml 480 ml Balance 450 ml 480 ml Intake Oral 450 ml 480 ml # Voids 3 5 # Bowel Movements 1 1 Result Diagram: 11/03/16 0744 11/05/16 1044 Objective Remarks GENERAL: NAD SKIN: Warm and dry. Swelling, ulcerating lesions and erythema lower lip NECK: Supple, trachea midline. + lymphadenopathy. CARDIOVASCULAR: Regular rate and rhythm without murmurs, gallops, or rubs. RESPIRATORY: Breath sounds equal bilaterally. No accessory muscle use. GASTROINTESTINAL: Abdomen soft, non-tender, nondistended. Medications and IVs Current Medications Sodium Chloride 1,000 ml @ 1,000 mls/hr Q1H ONCE IV Last administered on 20:08; Start 11/02/16 at 19:15; Stop 11/02/16 at 20:15; Status DC Sodium Chloride 1,000 ml @ 1,000 mls/hr Q1H ONCE IV Last administered on 20:09; Start 11/02/16 at 19:15; Stop 11/02/16 at 20:15; Status DC Sodium Chloride 100 ml @ 1,000 mls/hr Q6M ONCE IV Last administered on 21:43; Start 11/02/16 at 19:15; Stop 11/02/16 at 19:20; Status DC Vancomycin HCl 1000 mg/Sodium Chloride 250 ml @ 250 mls/hr ONCE ONCE IV Last administered on 11/02/16 21:43; Start 11/02/16 at 19:15; Stop 11/02/16 at 20:15 ; Status DC Piperacillin Sod/ Tazobactam Sod 50 ml @ 100 mls/hr ONCE ONCE IV Last administered on 11/02/16 20:09; Start 11/02/16 at 19:15; Stop 11/02/16 at 19:44 ; Status DC Acyclovir Sodium/ Sodium Chloride (Zovirax Inj/NS Inj) 50 ml @ 50 mls/hr ONCE ONCE IV Last administered on 11/02/16 20:36; Start 11/02/16 at 19:15; Stop 04/10 at 20:15; Status DC Ketorolac Tromethamine (Toradol Inj) 30 mg ONCE ONCE IV PUSH Last administered on 11/02/16 20:09; Start 11/02/16 at 19:15; Stop 11/02/16 at 19:19 ; Status DC Iohexol (Omnipaque 350 Inj) 65 ml STK-MED ONCE IV Last administered on 21:17; Start 11/02/16 at 21:17; Stop 11/02/16 at 21:18; Status DC Morphine Sulfate 4 mg 4 mg ONCE ONCE IV PUSH Last administered on 11/02/16 22 :13; Start 11/02/16 at 22:00; Stop 11/02/16 at 22:01; Status DC Piperacillin Sod/ Tazobactam Sod 100 ml @ 200 mls/hr Q6H IV Last administered on 11/04/16 08:23; Start 11/03/16 at 02:00; Stop 11/04/16 at 10:21; Status DC Pharmacy Profile Note 0 ml @ 0 mls/hr UNSCH OTHER ; Start 11/02/16 at 22:15 Vancomycin HCl 1000 mg/Sodium Chloride 250 ml @ 250 mls/hr Q12H IV ; Start 04/10 at 22:15; Status UNV Vancomycin HCl/ Sodium Chloride (Vancomycin Inj/ NS 250 ml Inj) 262.5 ml @ 250 mls/hr Q12H IV Last administered on 11/04/16 10:04; Start 11/03/16 at 08:00; Stop 11/04/16 at 10:42; Status DC Miscellaneous Information SPECIFIC LAB TO BE ... ONCE ONCE .XX Last administered on 11/04/16 09:30; Start 11/04/16 at 07:45; Stop 11/04/16 at 07:46 ; Status DC Sodium Chloride (NS 1000 ml Inj) 1,000 ml @ 30 mls/hr Q24H IV Last administered on 11/05/16 19:54; Start 11/02/16 at 23:26 Sodium Chloride (NS Flush) 2 ml UNSCH PRN IV FLUSH FLUSH AFTER USING IV ACCESS Last administered on 11/04/16 21:02; Start 11/02/16 at 23:30 Sodium Chloride (NS Flush) 2 ml BID IV FLUSH Last administered on 11/06/16 08: 38; Start 11/03/16 at 09:00 Acetaminophen (Tylenol) 650 mg Q4H PRN PO TEMP > 100.4; pain 1 -2; Start at 23:30 Ondansetron HCl (Zofran Inj) 4 mg Q6H PRN IVP NAUSEA OR VOMITING; Start at 23:30 Zolpidem Tartrate (Ambien) 5 mg HS PRN PO INSOMNIA Last administered on 22:33; Start 11/02/16 at 23:30 Enoxaparin Sodium (Lovenox Inj) 40 mg Q24H SQ Last administered on 11/05/16 23 :53; Start 11/03/16 at 00:00 Senna/Docusate Sodium (Mame-Colace) 1 tab BID PO Last administered on 08:38; Start 11/03/16 at 09:00 Magnesium Hydroxide (Milk Of Magnesia Liq) 30 ml Q12H PRN PO MILD - MODERATE CONSTIPATION; Start 11/02/16 at 23:30 Sennosides (Senokot) 17.2 mg Q12H PRN PO MODERATE - SEVERE CONSTIPATION; Start 11/02/16 at 23:30 Bisacodyl (Dulcolax Supp) 10 mg DAILY PRN RECTAL SEVERE CONSITIPATION; Start at 23:30 Lactulose (Lactulose Liq) 30 ml DAILY PRN PO SEVERE CONSITIPATION; Start at 23:30 Methylprednisolone Sodium Succinate (SoluMEDROL INJ) 40 mg Q8HR IV PUSH Last administered on 11/03/16 05:45; Start 11/03/16 at 01:15; Stop 11/03/16 at 14:11 ; Status DC Acyclovir (Zovirax) 200 mg 5 TIMES A DAY PO Last administered on 11/06/16 10: 32; Start 11/03/16 at 06:00 Morphine Sulfate (Morphine Inj) 2 mg Q4HR PRN IV PUSH pain 2-10 Last administered on 11/06/16 08:37; Start 11/03/16 at 01:15 Nicotine (Habitrol 21 Mg Patch.24 Hr) 1 patch DAILY T-DERMAL Last administered on 11/06/16 08:38; Start 11/03/16 at 14:15 Miscellaneous Information 1 1 DAILY T-DERMAL Last administered on 11/06/16 09: 00; Start 11/04/16 at 09:00 Vancomycin HCl/ Sodium Chloride (Vancomycin Inj/ NS 500 ml Inj) 515 ml @ 250 mls/hr Q12H IV Last administered on 11/06/16 09:01; Start 11/04/16 at 20:00 Miscellaneous Information SPECIFIC LAB TO BE DRAWN:VANCOMYCIN TROUGH DATE TO... ONCE ONCE .XX ; Start 11/06/16 at 07:45; Stop 11/06/16 at 07:46; Status DC Multi-Ingredient Mouthwash/Gargle (Magic Mouthwash Adult Liq) 5 ml QID SWISH- SWAL Last administered on 11/06/16 08:39; Start 11/05/16 at 13:00 A/P Problem List: (1) Herpes labialis ICD Code: B00.1 Status: Acute (2) Cellulitis ICD Code: L03.90 Status: Acute (3) Facial cellulitis ICD Code: L03.211 Status: Acute (4) Sepsis ICD Code: A41.9 Status: Acute Assessment and Plan 31-year-old female with Sepsis by criteria on admission (temperature 102.3, heart rate 123 suspected source facial cellulitis) Herpes with superimposed cellulitis of the right lower lip and face Failed outpatient treatment Continue acyclovir 200mg five times a day, IV vancomycin however discontinue Zosyn as wound culture positive for MRSA Pending sensitivity in order to discharge patient on oral medication. Parenteral pain management accordingly Continue with Magic mouthwash when necessary. HIV Confirmatory results positive. Patient was given results at bedside. Extensive time was spent with patient on diagnosis, prognosis, treatment, and management. Patient was also given extensive emotional support. Patient was seen again after results were given in which she was doing better and not tearful. Dealt with case management on establishing an HIV provider with patient. Patient is aware. Tobacco abuse- patient counselled encouraged to abstain. Continue nicotine patch DVT prophylaxis with Lovenox Discharge Planning Pending final sensitivity in order to transition patient to oral medication. Di Aguirre MD Nov 06, 2016 10:43
[2016-11-06 13:00] VITALS: BP 125/82; PULSE 72; RESP 16; TEMP 97.2; O2SAT 99
--- NOTE | 2016-11-06 13:24 | HHI.IDPN ---
Subjective Subjective Remarks Confermed HIV test facial edema, erythema is better MRSA R to clinda, S B/S, doxy I counselled the pt about the HIV test result, talked to her about importance of establishing HIV providor KAREN and start of HAART Also dw pt safe sex practices in order to protect her sex partner. Her BF is aware about her HIV status. Antibiotics vanco Allergies: Coded Allergies: *MDRO Multi-Drug Resistant Organism (Verified Adverse Reaction, Unknown, ) MRSA (lip)-11/02/16 Objective . Vital Signs Date Time Temp Pulse Resp B/P Pulse Ox O2 Delivery O2 Flow Rate FiO2 11/06/16 09:00 97.1 68 15 119/71 97 11/06/16 04:00 97.2 83 18 105/83 100 11/06/16 00:16 16 11/06/16 00:00 98.2 71 18 109/73 96 11/05/16 20:00 97.0 74 18 114/76 98 11/05/16 16:00 96.7 74 18 122/78 98 11/05/16 11/05/16 11/06/16 15:00 23:00 07:00 Intake Total 480 ml Balance 480 ml Intake Oral 480 ml # Voids 5 # Bowel Movements 1 . Laboratory Tests Test 11/05/16 10:44 Creatinine 0.48 MG/DL Estimat Glomerular Filtration 149 ML/MIN Rate Physical Exam CONSTITUTIONAL/GENERAL: This is an adequately nourished patient, in no apparent distress. TUBES/LINES/DRAINS: SKIN: No jaundice, rashes, or lesions. Ecchymoses on upper extremities. No wounds seen anteriorly. Skin temperature appropriate. Not diaphoretic. HEAD: Atraumatic. Normocephalic. EYES: Pupils equal and round and reactive. Extraocular motions intact. No scleral icterus. No injection or drainage. Fundi not examined. ENT: Hearing grossly normal. Nose without bleeding or purulent drainage. Oral mucosae without thrush Lower lip with healing crusted lesions Lip is no longer swollen or indurated, no fluctuance no erythema no facial edema or erythema NECK: Trachea midline. RESPIRATORY/CHEST: unlabored respirations. MUSCULOSKELETAL: Extremities without clubbing, cyanosis, or edema. LYMPHATICS: No palpable cervical submandibular or supraclavicular adenopathy. NEUROLOGICAL: Awake and alert. Non focal PSYCHIATRIC: calm, though still tearfull because upset about her diagnosis Assessment & Plan Remarks Lower lip MRSA infx, superinfected herpetic lesion - failed clinda, confirmed clinda R - S B/S and doxy Confirmed new HIV case, CD4 P - doxycycline x 7 more days - pt needs to establish HIV providor within next 2 weeks to start HAART OK to dc home from [place] billie esteves RN dw case mn dw Marita Hudson MD Nov 06, 2016 13:24
[2016-11-06] MEDS ORDERED: DOXY100C PO (13:36)
[2016-11-06] MEDS ORDERED: MAGICADU2 SWISH-SWAL (13:38)
--- NOTE | 2016-11-06 13:43 | HHI.DCPOC ---
Discharge Care Plan Diagnosis: (1) HIV (human immunodeficiency virus infection) (2) Herpes labialis (3) Sepsis (4) Facial cellulitis Goals to Promote Your Health * To prevent worsening of your condition and complications * To maintain your health at the optimal level Directions to Meet Your Goals Take your medications as prescribed Follow your dietary instruction Follow activity as directed Keep your appointments as scheduled Take your immunizations and boosters as scheduled If your symptoms worsen call your PCP, if no PCP go to Urgent Care Center or Emergency Room Smoking is Dangerous to Your Health. Avoid second hand smoke Call the 24-hour hour crisis hotline for domestic abuse at Di Aguirre MD Nov 06, 2016 13:42
--- NOTE | 2016-11-06 13:43 | HHI.DS ---
Discharge Summary Admission Date Nov 02, 2016 at 22:03 Discharge Date: Nov 06, 2016 Admitting Diagnosis facial cellulitis, SIRS (1) Sepsis ICD Code: A41.9 Diagnosis: Principal (2) Herpes labialis ICD Code: B00.1 Diagnosis: Principal (3) Facial cellulitis ICD Code: L03.211 Diagnosis: Principal (4) HIV (human immunodeficiency virus infection) ICD Code: Z21 Diagnosis: Principal Procedures none Brief History - From Admission Written by Maral Montelongo, acting as scribe for Dr. Naylor on 11/03/16 at 02 :38. This note was transcribed by gelacio HAAS. I, Dr. Heaven Naylor personally performed the history, physical exam, and medical decision making; and confirmed the accuracy of the information in the transcribed note. Authenticated by Dr. Heaven Naylor on 11/03/16 at 02:38. This is a 31-year-old female with a past medical history which includes drug induced seizures, scoliosis hepatitis C and IV drug abuse last to 5-6 months ago. Patient was treated in the ER on October 29 for right lower lip pain. She reports that she developed some cold sores that she picked and squeezed then she developed increased pain, redness, soft tissue swelling localized to the right lower lip. Patient was treated herpes labialis and cellulitis with acyclovir 200mg by mouth five time a day and clindamycin 300mg by mouth TID which she has been using as prescribed starting on October 29 Patient presents today for evaluation of worsening pain and edema. Patient reports over the past few days she has had worsening swelling of the whole lower lip as well as the right side of her face. Pain is a, "raw," throbbing feeling, constant, worse with palpation. She has been having subjective fevers and chills at home as well. Denies any changes in vision, cough, congestion, chest pain, shortness of breath, abdominal pain, nausea, vomiting, diarrhea or constipation. Patient is able to swallow without difficulties. Patient has no drooling. CBC/BMP: 11/03/16 0744 11/05/16 1044 Significant Findings Laboratory Tests Test 11/04/16 11/04/16 11/05/16 06:29 09:27 10:44 HIV (1&2) Antibody REFLEX (NEGATIVE) Vancomycin Level Trough 10.6 MCG/ML (5.0-10.0) Creatinine 0.48 MG/DL (0.50-1.00) Imaging Last Impressions Maxillofacial CT 11/02/16 0000 Signed Impressions: Service Date/Time: Wednesday, November 02, 2016 21:05 - CONCLUSION: 1. Diffuse soft tissue swelling of the lower left with mild heterogeneous enhancement. 2. Bilateral mildly enlarged submandibular lymph nodes. 3. Osseous structures are facial bones are intact. No destruction of the mandible seen. Cal Lubin MD PE at Discharge GENERAL: NAD SKIN: Warm and dry. Swelling, ulcerating lesions and erythema lower lip NECK: Supple, trachea midline. + lymphadenopathy. CARDIOVASCULAR: Regular rate and rhythm without murmurs, gallops, or rubs. RESPIRATORY: Breath sounds equal bilaterally. No accessory muscle use. GASTROINTESTINAL: Abdomen soft, non-tender, nondistended. Hospital Course 31-year-old female with Sepsis by criteria on admission (temperature 102.3, heart rate 123 suspected source facial cellulitis) Herpes with superimposed cellulitis of the right lower lip and face Failed outpatient treatment started on acyclovir 200mg five times a day in which she completed course in hospital, she was treated empirically with IV vancomycin and Zosyn. ID consulted. wound cultures grew MRSA and she was switch to PO doxycycline which cultures were sensitive to for 7 more days of treatment. Magic mouthwash use to help with herpes lesions. HIV screening was done which was positive. Confirmatory results positive. CD order and pending results. Patient was given results at bedside by me and infectious disease . Extensive time was spent with patient on diagnosis, prognosis, treatment, and management. Patient was also given extensive emotional support in which she was checked on multiple times throughout the day. At the time she was discharge she stated she is doing well and has strong support from her boyfriend. Boyfriend present at discharge and he stated he will get check for HIV. patient was given forms by case management and told to call HIV provider for treatment and management. patient stated she understood. all questions were answer in which she was satisfied. Tobacco abuse- patient counselled encouraged to abstain. Continue nicotine patch Pt Condition on Discharge: Good Discharge Disposition: Discharge Home Discharge Time: > 30 minutes Discharge Instructions DIET: Follow Instructions for: As Tolerated, No Restrictions Activities you can perform: Regular-No Restrictions Follow up Referrals: Infectious Disease - 1 Week @ [facility] PCP Follow-up - 1 Week New Medications: Doxycycline Hyclate (Doxycycline Hyclate) 100 Mg Cap 100 MG PO BID Infection Days 7 Ref 0 CAP Tumdrzsl-Akjcoxumhpjiacn-Bqlprgmpi Liq (Magic Mouthwash Adult Liq) 120 Ml Susp 5 ML SWISH-SWAL QID ulcerating lesions #120 Ref 0 ML Discontinued Medications: Acyclovir (Acyclovir) 200 Mg Cap 200 MG PO 5 TIMES A DAY Mgmt Viral Infection Days 7 Ref 0 CAP Clindamycin (Clindamycin) 300 Mg Cap 300 MG PO TID Infection Days 10 Ref 0 CAP Di Aguirre MD Nov 06, 2016 13:43
[2016-11-07 07:52] LABS: CD4/CD8 RATIO 0.5 (0.86-5.00)
== END 2016-11-06 14:45 | disposition home or self-care (01) | DRG 872 ==
LOC: NEPD 18:50 → NEDA 22:03 → HOCB 11-03 00:01
PROVIDERS: ADMIT Family Medicine; ATTEND Family Medicine
DX: A41.9 Sepsis, unspecified organism (principal); M41.9 Scoliosis, unspecified; L03.211 Cellulitis of face; B18.2 Chronic viral hepatitis C; F17.210 Nicotine dependence, cigarettes, uncomplicated; B00.1 Herpesviral vesicular dermatitis; Z21 Asymptomatic human immunodeficiency virus [HIV] infection status; B95.62 Methicillin resistant Staphylococcus aureus infection as the cause of diseases classified elsewhere
CPT/HCPCS: 70487; 76937; 80048; 80053; 80202; 82565; 83605; 84703; 85025; 86355; 86357; 86359; 86360; 86403; 86701; 86702; 86703; 87040; 87070; 87147; 87186; 87205; 96365; 96375; J0133; J1650; J1885; J2270; J2543; J2920; J3370; J7030; J7040; J7050; Q9967

== ENCOUNTER 2017-06-13 18:35 | Emergency (ER) | payer OTHER ==
[~2017-06-13] VITALS: Ht 170.2 cm; Wt 65.0 kg
[~2017-06-13 18:35] MED LIST changes: -ACYC200C66 PO; -CLIN1CAP6 PO; +DOXY100C PO; +MAGICADU2 SWISH-SWAL
[2017-06-13 18:37] VITALS: BP 127/73; PULSE 92; RESP 16; TEMP 98.6; O2SAT 99
[2017-06-13] MEDS ORDERED: [UNRECOGNIZED DRUG - REMARK] (18:56)
[2017-06-13] MEDS ORDERED: CYCL10TA PO (19:15)
[2017-06-13] MEDS ORDERED: DICL75TA PO (19:15)
--- NOTE | 2017-06-13 19:21 | PD ---
HPI Chief Complaint: Back/ Neck Pain or Injury Time Seen by Provider: 19:06 Travel History International Travel<30 days: No Contact w/Intl Traveler<30days: No Traveled to known affect area: No History of Present Illness HPI 32-year-old white female presents to emergency Department with complaints of lower back pain for the last few days. She states that she does not recall any injury. Pain is worse when she sits for long periods of time or moves. She states the pain is more on the left than the right. It is [id number] in intensity. She denies any acute bowel or bladder changes. No fever or chills. No nausea vomiting. No dysuria or frequency. No numbness, tingling or weakness. Patient does have a history of IV drug abuse and she last used IV drugs approximately one month ago. PFSH Past Medical History Narrative Medical Anxiety, bipolar, IVDA, hepatitis C, HIV Asthma: No Autoimmune Disease: No Cancer: No Cardiovascular Problems: No COPD: No Endocrine: No Gastrointestinal Disorders: Yes GERD: No Genitourinary: No Hepatitis: Yes (HEP C) Hiatal Hernia: No Immune Disorder: Yes (HIV+) Psychiatric: No Reproductive: No Respiratory: No Immunizations Current: No Seizures: Yes (DRUG INDUCED) Ulcer: No Tetanus Vaccination: < 5 Years ?: Not LMP: 06/08/17 Social History Alcohol Use: Yes Tobacco Use: Yes Substance Use: Yes (MARIJUANA) Allergies-Medications (Allergen,Severity, Reaction): Coded Allergies: *MDRO Multi-Drug Resistant Organism (Verified Adverse Reaction, Unknown, ) MRSA (lip)-11/02/16 Reported Meds & Prescriptions Reported Meds & Active Scripts Active Flexeril (Cyclobenzaprine HCl) 10 Mg Tab 10 Mg PO TID Diclofenac Sodium DR (Diclofenac Sodium) 75 Mg Tabdr 75 Mg PO BID Reported [Unk Hiv Med] DAILY Review of Systems General / Constitutional: No: Fever Eyes: No: Visual changes HENT: No: Headaches, Neck Stiffness, Neck Pain Cardiovascular: No: Chest Pain or Discomfort Respiratory: No: Shortness of Breath Gastrointestinal: No: Nausea, Abdominal Pain Genitourinary: No: Dysuria Musculoskeletal: Positive: Pain, No: Myalgias, Arthralgias, Limited ROM, Weakness Skin: No Rash Neurologic: No: Weakness Psychiatric: No: Depression Endocrine: No: Polydipsia Hematologic/Lymphatic: No: Easy Bruising Physical Exam Narrative GENERAL: Well-developed, well-nourished in no apparent distress. Nontoxic appearing. HEAD: Normocephalic, atraumatic. EYES: Pupils equal round and reactive. Extraocular motions intact. No scleral icterus. No injection or drainage. ENT: Nose clear. Throat without erythema, tonsillar hypertrophy or exudate. Uvula midline. Airway patent. NECK: Trachea midline. Supple, nontender, moves head freely. No central bony tenderness or spasm. CARDIOVASCULAR: Regular rate and rhythm without murmurs, gallops, or rubs. RESPIRATORY: Clear to auscultation. Breath sounds equal bilaterally. No wheezes , rales, or rhonchi. GASTROINTESTINAL: Abdomen soft, non-tender, nondistended. No hepato-splenomegaly , or palpable masses. No guarding. EXTREMITIES: No clubbing, cyanosis, or edema. No joint tenderness. BACK: No central bony tenderness to palpation of the dorsal lumbar spine. Patient has left paralumbar tenderness into the left SI region. Without deformity. No flank tenderness. Negative straight leg raise bilaterally. No saddle anesthesia. She has intact sensation with good distal pulses. There is no erythema or warmth. The patient moves freely and does not appear to be in any discomfort. Patient is able to cross her legs independently. Deep tendon reflexes are 3+ bilaterally. NEUROLOGICAL: Awake, alert and oriented x 3 .Cranial nerves grossly intact. Motor and sensory grossly within normal limits. Normal speech. Data Data Last Documented VS Vital Signs Date Time Temp Pulse Resp B/P (MAP) Pulse Ox O2 Delivery O2 Flow Rate FiO2 06/13/17 18:37 98.6 92 16 127/73 (91) 99 Orders Orders Ed Discharge Order (06/13/17 19:14) [facility] Medical Decision Making Medical Screen Exam Complete: Yes Emergency Medical Condition: Yes Medical Record Reviewed: Yes Differential Diagnosis MDM: High Differential diagnoses: sprain, strain, HNP, nerve or vascular injury, epidural abscess , pyelonephritis, UTI Narrative Course This is acute back pain. I doubt that this is a infectious process or an epidural abscess. The patient does not appear acutely ill. She moves freely. Diagnosis Primary Impression: Acute back pain Qualified Codes: M54.5 - Low back pain Patient Instructions: General Instructions Additional Instructions: Rest. Ice for the next 3 days followed by heat . Flexeril and Voltaren. Follow-up with a primary care doctor in one week. Return to the ER for emergencies. Med/Other Pt SpecificInfo: Prescription(s) given Scripts Cyclobenzaprine (Flexeril) 10 Mg Tab 10 MG PO TID for Muscle Spasm, #21 TAB 0 Refills Prov: Regino Macdonald MD 06/13/[address] (Diclofenac Sodium DR) 75 Mg Tabdr 75 MG PO BID, #20 TAB 0 Refills Prov: Regino Macdonald MD 06/13/17 Disposition: 01 DISCHARGE HOME Condition: Stable Houston Estevez Jun 13, 2017 19:21
== END 2017-06-13 19:31 | disposition home or self-care (01) ==
LOC: NEPD 18:35
DX: M54.5 Low back pain (principal); B19.20 Unspecified viral hepatitis C without hepatic coma; F41.9 Anxiety disorder, unspecified; F31.9 Bipolar disorder, unspecified; B20 Human immunodeficiency virus [HIV] disease; F12.90 Cannabis use, unspecified, uncomplicated; Z72.0 Tobacco use
CPT/HCPCS: 99284

== ENCOUNTER 2017-07-11 13:34 | Emergency (ER) | payer OTHER ==
[~2017-07-11] VITALS: Ht 170.2 cm; Wt 67.0 kg
[~2017-07-11 13:34] MED LIST changes: +CYCL10TA PO; +DICL75TA PO; -DOXY100C PO; -MAGICADU2 SWISH-SWAL; +[UNRECOGNIZED DRUG - REMARK]
[2017-07-11 13:47] VITALS: BP 127/83; PULSE 105; RESP 17; TEMP 98.3; O2SAT 100
[2017-07-11] MEDS ORDERED: SODIUM CHLOR 0.9% 1000 ML INJ 1,000 ML IV SCH (13:48)
--- NOTE | 2017-07-11 13:48 | PD ---
HPI Chief Complaint: Overdose Time Seen by Provider: 13:47 Travel History International Travel<30 days: No Contact w/Intl Traveler<30days: No History of Present Illness HPI 32-year-old female arrives by EMS. She was found unresponsive at home. She has a history of IV drug abuse and reported using heroin today. She denies self -harm intent/suicidal ideation. Location neuropsychiatric generalized. EMS reports resolution of symptoms following intranasal Narcan. Onset sudden. Timing resolved. PFSH Past Medical History Asthma: No Autoimmune Disease: No Cancer: No Cardiovascular Problems: No COPD: No Endocrine: No Gastrointestinal Disorders: Yes GERD: No Genitourinary: No Hepatitis: Yes (HEP C) Hiatal Hernia: No Immune Disorder: Yes (HIV+) Psychiatric: No Reproductive: No Respiratory: No Immunizations Current: No Seizures: Yes (DRUG INDUCED) Ulcer: No Social History Alcohol Use: Yes Tobacco Use: Yes Substance Use: Yes (MARIJUANA) Allergies-Medications (Allergen,Severity, Reaction): Coded Allergies: *MDRO Multi-Drug Resistant Organism (Verified Adverse Reaction, Unknown, ) MRSA (lip)-11/02/16 Reported Meds & Prescriptions Reported Meds & Active Scripts Active Narcan Nasal [place] (Naloxone HCl) 4 Mg/Act [place] 4 Mg NASAL ONCE PRN Contents of 1 nasal spray as a single dose; may repeat every 2 to 3 minutes in alternating nostrils until medical assistance becomes available. Reported Acyclovir 400 Mg Tab 400 Mg PO BID Review of Systems Except as stated in HPI: all other systems reviewed are Neg Physical Exam Narrative GENERAL: 32-year-old female pleasant well-nourished well-developed SKIN: Warm and dry. Multiple areas of linear lesions consistent with IV drug abuse. Piloerection noted. HEAD: Atraumatic. Normocephalic. EYES: Pupils equal and round. No scleral icterus. No injection or drainage. ENT: No nasal bleeding or discharge. Mucous membranes pink and moist. NECK: Trachea midline. No JVD. CARDIOVASCULAR: Regular rate and rhythm. RESPIRATORY: No accessory muscle use. Clear to auscultation. Breath sounds equal bilaterally. GASTROINTESTINAL: Abdomen soft, non-tender, nondistended. Hepatic and splenic margins not palpable. MUSCULOSKELETAL: Extremities without clubbing, cyanosis, or edema. No obvious deformities. NEUROLOGICAL: Awake and alert. No obvious cranial nerve deficits. Motor grossly within normal limits. Five out of 5 muscle strength in the arms and legs. Normal speech. PSYCHIATRIC: Appropriate mood and affect; insight and judgment normal. Data Data Last Documented VS Vital Signs Date Time Temp Pulse Resp B/P (MAP) Pulse Ox O2 Delivery O2 Flow Rate FiO2 07/11/17 15:30 107 18 127/83 (98) 100 07/11/17 13:59 Room Air 07/11/17 13:47 98.3 Vital signs reviewed Orders Orders Blood Glucose (07/11/17 13:48) Ecg Monitoring (07/11/17 13:48) Iv Access Insert/Monitor (07/11/17 13:48) Oximetry (07/11/17 13:48) Sodium Chloride 0.9% Flush (Ns Flush) (07/11/17 14:00) Sodium Chlor 0.9% 1000 Ml Inj (Ns 1000 M (07/11/17 13:48) Alcohol (Ethanol) (07/11/17 13:48) Tylenol (Acetaminophen) (07/11/17 13:48) Ed Discharge Order (07/11/17 15:17) Labs Laboratory Tests Test 07/11/17 14:00 Acetaminophen Level LESS THAN 2.0 MCG/ML Ethyl Alcohol Level LESS THAN 3 MG/DL MDM Medical Decision Making Medical Screen Exam Complete: Yes Emergency Medical Condition: Yes Medical Record Reviewed: Yes Differential Diagnosis Heroin overdose, polysubstance abuse, suicide attempt, overdose of indeterminate intent Narrative Course Patient GCS 15 and O 3 with with mild tachycardia at 105 upon arrival here Patient observed here for about 90 minutes. Narcan prescription as below. Patient's father is here with her. Diagnosis Primary Impression: Heroin overdose Qualified Codes: T40.1X1A - Poisoning by heroin, accidental (unintentional), initial encounter Referrals: [facility] Med/Other Pt SpecificInfo: Prescription(s) given Scripts Naloxone Nasal [place] (Narcan Nasal [place]) 4 Mg/Act [place] 4 MG NASAL ONCE Y for OPIOID OVERDOSE, #1 SPRAY 0 Refills Contents of 1 nasal spray as a single dose; may repeat every 2 to 3 minutes in alternating nostrils until medical assistance becomes available. Prov: Moises Ferrer MD 07/11/17 Disposition: 01 DISCHARGE HOME Condition: Stable Moises Ferrer MD Jul 11, 2017 13:48
[2017-07-11 13:57] VITALS: RESP 16; O2SAT 100
[2017-07-11] MEDS ORDERED: SODIUM CHLORIDE 0.9% FLUSH 10 ML FLUSH IV FLUSH PRN (14:00)
[2017-07-11] MEDS ORDERED: ACYC400T PO (14:03)
[2017-07-11] MEDS ORDERED: NALO1SPR NASAL (15:19)
[2017-07-11 15:28] LABS: ACETAMINOPHEN LESS THAN 2.0 MCG/ML (10.0-30.0)
[2017-07-11 15:30] VITALS: BP 127/83
== END 2017-07-11 15:32 | disposition home or self-care (01) ==
LOC: NEPC 13:34
DX: T40.1X1A Poisoning by heroin, accidental (unintentional), initial encounter (principal); R00.0 Tachycardia, unspecified; R56.9 Unspecified convulsions; Z72.0 Tobacco use; Z86.19 Personal history of other infectious and parasitic diseases; Z21 Asymptomatic human immunodeficiency virus [HIV] infection status
CPT/HCPCS: 80307; 96360; 99284; J7030